=== PATIENT | female | born 1960 | race Caucasian/White ===

== ENCOUNTER 2016-08-21 14:32 | Emergency (ER) | payer MEDICAID ==
[~2016-08-21] VITALS: Ht 157.5 cm; Wt 60.0 kg
[~2016-08-21 14:32] MED LIST: CALC-138 PO; CHOL20003 PO; EZET10TA3 PO; FENO160T PO; FLUT16SP2 NAS; FLUT1DIS3 INH; HYDR12.58 PO; HYDR30CR7 TP; IPRA4AER INH; MONT10TA9 PO; MULT-658 PO; PANT40TA5 PO; ROPI1TAB2 PO
[2016-08-21] MEDS ORDERED: SODIUM CHLORIDE FLUSH 10ML SYR IVF ONE (15:00)
[2016-08-21] MEDS ORDERED: SODIUM CHLORIDE 0.9% 1,000ML IVBOLUS ONE (15:00)
[2016-08-21 15:18] LABS: ASPARTATE AMINO TRANSFERASE 25 U/L (15-37); BLOOD UREA NITROGEN 4 mg/dL (7-18)
[2016-08-21] MEDS ORDERED: METOCLOPRAMIDE 5 MG/ML, 2ML ONE (16:28)
[2016-08-21] MEDS ORDERED: KETOROLAC 30 MG/1 ML ONE (16:28)
[2016-08-21] MEDS ORDERED: DIPHENHYDRAMINE 50 MG/ML, 1ML ONE (16:28)
[2016-08-21] MEDS ORDERED: METOCLOPRAMIDE 5 MG/ML, 2ML IVPush ONE (16:30)
[2016-08-21] MEDS ORDERED: KETOROLAC 30 MG/1 ML IVPush ONE (16:30)
[2016-08-21] MEDS ORDERED: DIPHENHYDRAMINE 50 MG/ML, 1ML IVPush ONE (16:30)
[2016-08-21 17:15] LABS: DAU SCREEN DISCLAIMER
[2016-08-21 18:26] VITALS: BP 159/87
== END 2016-08-21 18:07 | disposition home or self-care (01) ==
LOC: ED 17:11
DX: N30.90 Cystitis, unspecified without hematuria (principal); R51 Headache; J44.9 Chronic obstructive pulmonary disease, unspecified; K75.9 Inflammatory liver disease, unspecified; I10 Essential (primary) hypertension; E78.00 Pure hypercholesterolemia, unspecified; Z90.49 Acquired absence of other specified parts of digestive tract
CPT/HCPCS: 36415; 70450; 72125; 80053; 80307; 81001; 85025; 87086; 93005; 96361; 96374; 96375; 99285; J1200; J1885; J2765; J7030

== ENCOUNTER 2017-01-03 11:56 | Emergency (ER) | payer MEDICAID ==
[~2017-01-03] VITALS: Ht 152.4 cm; Wt 51.8 kg
[~2017-01-03 11:56] MED LIST changes: +CHOL2000 PO; -CHOL20003 PO; +EZET10TA18 PO; -EZET10TA3 PO
[2017-01-03 12:00] VITALS: BP 116/77
[2017-01-03] MEDS ORDERED: IBUPROFEN 200 MG TABLET ONE (12:13)
[2017-01-03] MEDS ORDERED: IBUPROFEN 200 MG TABLET PO ONE (12:30)
== END 2017-01-03 13:24 | disposition home or self-care (01) ==
LOC: ED 12:10
DX: S90.32XA Contusion of left foot, initial encounter (principal); J44.9 Chronic obstructive pulmonary disease, unspecified; I10 Essential (primary) hypertension; E78.00 Pure hypercholesterolemia, unspecified; Z90.49 Acquired absence of other specified parts of digestive tract; W04.XXXA Fall while being carried or supported by other persons, initial encounter; Y93.89 Activity, other specified; Y92.009 Unspecified place in unspecified non-institutional (private) residence as the place of occurrence of the external cause; Y99.8 Other external cause status
CPT/HCPCS: 99284

== ENCOUNTER 2017-12-04 19:31 | Emergency (ER) | payer MEDICAID ==
[~2017-12-04] VITALS: Ht 152.4 cm; Wt 47.6 kg
[2017-12-04 19:35] VITALS: BP 152/87
[2017-12-04] MEDS ORDERED: PROPARACAINE OPHTH 0.5%, 15ML ONE (19:47)
[2017-12-04] MEDS ORDERED: PROPARACAINE OPHTH 0.5%, 15ML EACHEYE ONE (20:00)
[2017-12-04] MEDS ORDERED: ERYTHROMYCIN OPHTH 0.5%, 1GM LEFTEYE ONE (20:00)
[2017-12-04] MEDS ORDERED: FLUORESCEIN OPHTHALMIC 1 MG STRIP EACHEYE ONE (20:00)
== END 2017-12-04 20:59 | disposition home or self-care (01) ==
LOC: ED 20:15
DX: S05.02XA Injury of conjunctiva and corneal abrasion without foreign body, left eye, initial encounter (principal); J44.9 Chronic obstructive pulmonary disease, unspecified; I10 Essential (primary) hypertension; E78.00 Pure hypercholesterolemia, unspecified; Z88.0 Allergy status to penicillin; Z98.51 Tubal ligation status; X58.XXXA Exposure to other specified factors, initial encounter; Y93.01 Activity, walking, marching and hiking; Y92.89 Other specified places as the place of occurrence of the external cause; Y99.8 Other external cause status
CPT/HCPCS: 99283

== ENCOUNTER 2019-06-17 11:01 | Emergency (ER) | payer MEDICAID ==
[~2019-06-17] VITALS: Ht 152.4 cm; Wt 49.9 kg
[~2019-06-17 11:01] MED LIST changes: -EZET10TA18 PO; +EZET10TA70 PO; -HYDR12.58 PO; +HYDROCHLOROTH12.5 MG PO; +MONT10TA11 PO; -MONT10TA9 PO; -ROPI1TAB2 PO; +ROPI1TAB4 PO
--- NOTE | 2019-06-17 11:32 | NUR ---
[facility]F THIS MORNING C/O LEFT POSTERIOR MID THORACIC RIB PAIN. DENIES LOC OR HITTING HER HEAD. PAIN INCREASES WITH MOVEMENT AND INSPIRATION. ER PA AT BEDSIDE. PT ASSESSMENT, POC DISCUSSED, ORDERS REC'D. PT ON BP AND SP02 MONITORING, CALL LIGHT W/I REACH, WARM BLANKET PROVIDED.
[2019-06-17] MEDS ORDERED: OXYcodone/APAP 5/325MG TABLET ONE ×2 (11:37→12:33)
--- NOTE | 2019-06-17 11:40 | NUR ---
PT MED NOTED FOR PAIN. WARM BLANKET TO LEFT RIB AREA AND PT INSTRUCTED ON SPLINTING WITH [place] IF SHE NEEDS TO COUGH.
--- NOTE | 2019-06-17 11:51 | NUR ---
REPORT RECEIVED FROM CHELO MIGUEL.
[2019-06-17] MEDS ORDERED: OXYcodone/APAP 5/325MG TABLET PO ONE ×2 (12:00→13:00)
--- NOTE | 2019-06-17 12:00 | NUR ---
[facility] RPT TO [facility]. PT CURRENTLY IN RADIOLOGY
--- NOTE | 2019-06-17 12:05 | NUR ---
ALL TESTS RESULTED PT IS UP FOR RECHECK AT THIS TIME.
[2019-06-17 12:09] VITALS: BP 147/87
--- NOTE | 2019-06-17 12:10 | NUR ---
PT REPORTS PAIN NOW 09/07. WAS 10/10 PRIOR TO MEDICATING. RESTING ON [place] W/ CALL LIGHT IN REACH. AWAITING RECHECK.
--- NOTE | 2019-06-17 12:52 | NUR ---
Patient given discharge instructions and they have confirmed that they understand the instructions. Patient ambulatory with steady gait.
== END 2019-06-17 12:54 | disposition home or self-care (01) ==
LOC: ED 12:07
DX: S20.212A Contusion of left front wall of thorax, initial encounter (principal); F17.210 Nicotine dependence, cigarettes, uncomplicated; F41.9 Anxiety disorder, unspecified; J44.9 Chronic obstructive pulmonary disease, unspecified; I10 Essential (primary) hypertension; E78.00 Pure hypercholesterolemia, unspecified; Z90.49 Acquired absence of other specified parts of digestive tract; W01.0XXA Fall on same level from slipping, tripping and stumbling without subsequent striking against object, initial encounter; Y93.89 Activity, other specified; Y92.009 Unspecified place in unspecified non-institutional (private) residence as the place of occurrence of the external cause; Y99.8 Other external cause status
CPT/HCPCS: 99283

== ENCOUNTER 2019-06-27 05:41 | Observation (INO) | payer MEDICAID ==
[~2019-06-27] VITALS: Ht 152.4 cm; Wt 50.0 kg
--- NOTE | 2019-06-27 05:58 | NUR ---
PATIENT AMBULATORY WITH STEADY GAIT TO RESTROOM FROM ROOM
--- NOTE | 2019-06-27 06:57 | NUR ---
THIS IS A 59 YO FEMALE COMING IN FOR "RECHECK", PATIENT STATES "I WAS SEEN HERE ON THE FOR LEFT RIB PAIN, THEY SAID IT WAS BRUISED. NOW IT'S GETTING WORSE AND THE PAIN IS TRAVELING DOWN MORE". LEFT RIBS TENDER TO PALPATION, TNEDER TO PALPATION IN STERNUM, SHORTNESS OF BREATH RELATED TO PAIN IN RIBS. VSS IN TRIAGE, PIV PLACED FOR CT. FAMILY IN ROOM. CALL LIGHT IN REACH.
[2019-06-27] MEDS ORDERED: SODIUM CHLORIDE FLUSH 10ML SYR IVF ONE (07:00)
--- NOTE | 2019-06-27 07:00 | NUR ---
REPORT GIVEN TO [facility]. PLAN OF CARE DISCUSSED. LABS SENT, AWAITING TO BE TAKEN TO CT
[2019-06-27 07:05] LABS: BASOPHILS # (AUTO) 0.03 x10^3/uL (0-0.1); BASOPHILS % (AUTO) 0 % (0-1); EOSINOPHILS % (AUTO) 2 % (1-7); LYMPHOCYTES # (AUTO) 1.91 x10^3/uL (1-3.4); LYMPHOCYTES % (AUTO) 20 % (22-44); MD NO; MEAN CORPUSCULAR HEMOGLOBIN 31.2 pg (27.0-34.8); MEAN CORPUSCULAR HGB CONC 33.4 g/dL (32.4-35.8); MEAN CORPUSCULAR VOLUME 93.4 fL (80-100); MONOCYTES # (AUTO) 0.49 x10^3/uL (0.2-0.8); MONOCYTES % (AUTO) 5 % (2-9); NEUTROPHILS # (AUTO) 6.95 x10^3/uL (1.8-6.8); NEUTROPHILS % (AUTO) 73 % (42-75); PLATELET COUNT 263 x10^3/uL (130-400); RED BLOOD COUNT 5.03 x10^6/uL (3.82-5.3); RED CELL DISTRIBUTION WIDTH 13.9 % (9.6-15.2)
[2019-06-27 07:16] LABS: ALBUMIN 3.6 g/dL (3.4-5.0); ANION GAP 4 mmol/L (5-15); CALCIUM 9.1 mg/dL (8.5-10.1); CHLORIDE 113 mmol/L (98-107); CREATININE 0.76 mg/dL (0.55-1.02)
--- NOTE | 2019-06-27 07:26 | NUR ---
PT RESTING IN BED, CALL LIGHT IN REACH
[2019-06-27] MEDS ORDERED: OMNIPAQUE 350 MG/ML, 100ML BOTTLE ONE (08:30)
--- NOTE | 2019-06-27 09:12 | NUR ---
MD TATE AT BEDSIDE FOR EVALUATION
--- NOTE | 2019-06-27 09:12 | NUR ---
dr rios spoke with dr iqbal
[2019-06-27 09:15] VITALS: BP 161/93
--- NOTE | 2019-06-27 09:41 | NUR ---
STEADY AMBULATION TO BATHROOM
--- NOTE | 2019-06-27 09:59 | NUR ---
report called to geovanni pritchett
[2019-06-27] MEDS ORDERED: TRAZODONE 50MG TABLET PO PRN (11:30)
[2019-06-27] MEDS ORDERED: ONDANSETRON 2MG/ML, 2ML IVPush PRN (11:30)
[2019-06-27] MEDS ORDERED: ENOXAPARIN 30 MG/0.3 ML SQ SCH (11:30)
[2019-06-27] MEDS ORDERED: METHOCARBAMOL 500 MG TABLET PO SCH (11:30)
[2019-06-27] MEDS ORDERED: IBUPROFEN 600 MG TABLET PO PRN (11:30)
[2019-06-27] MEDS ORDERED: ONDANSETRON ODT 4 MG PO PRN (11:30)
[2019-06-27] MEDS ORDERED: hydrALAzine 20 MG/ML, 1ML IVPush PRN (11:30)
[2019-06-27] MEDS ORDERED: KETOROLAC 30 MG/1 ML IV PRN (11:30)
[2019-06-27] MEDS ORDERED: LABETALOL 5MG/ML, 20ML IVPush PRN (11:30)
[2019-06-27] MEDS ORDERED: BUTALB/APAP/CAFFEINE 50MG/325MG/40MG PO PRN (11:30)
[2019-06-27] MEDS ORDERED: ACETAMINOPHEN 325 MG TABLET PO PRN (11:30)
[2019-06-27] MEDS ORDERED: NICOTINE 21 MG/24 HR PATCH.TD24 TD ONE (12:00)
[2019-06-27] MEDS ORDERED: ALBUTEROL/IPRATROPIUM 2.5MG/0.5MG, 3 ML NEB SCH (16:00)
[2019-06-27] MEDS ORDERED: BUDESONIDE 0.5 MG/2 ML INHA NEB SCH (21:00)
[2019-06-27] MEDS ORDERED: LACTULOSE 10 GM/15 ML UDC PO SCH (21:00)
[2019-06-27] MEDS ORDERED: ROPINIROLE 1MG TABLET PO SCH (21:00)
[2019-06-28] MEDS ORDERED: PANTOPRAZOLE 40MG TABLET PO SCH (07:30)
[2019-06-28] MEDS ORDERED: MULTIVITAMIN 1 TABLET PO SCH (09:00)
[2019-06-28] MEDS ORDERED: CHOLECALCIFEROL 1,000 UNIT TABLET PO SCH (09:00)
[2019-06-28] MEDS ORDERED: HYDROCHLOROTHIAZIDE 12.5 MG CAPSULE PO SCH (09:00)
[2019-06-28] MEDS ORDERED: FENOFIBRATE 145 MG TABLET PO SCH (09:00)
[2019-06-28] MEDS ORDERED: EZETIMIBE 10 MG TABLET PO SCH (09:00)
[2019-06-28] MEDS ORDERED: MONTELUKAST 10 MG TABLET PO SCH (09:00)
[2019-06-28] MEDS ORDERED: HYDROCORTISONE TP SCH (09:00)
[2019-06-28] MEDS ORDERED: CALCIUM/VITAMIN D3 250-125 TABLET PO SCH (09:00)
== END 2019-06-27 15:39 | disposition left against medical advice (07) ==
LOC: ED 06:58 → EDIP 09:10 → INTOOBSV 09:10 → 3N 10:29
PROVIDERS: ADMIT Family Medicine; ATTEND Family Medicine
DX: S22.32XA Fracture of one rib, left side, initial encounter for closed fracture (principal); G89.11 Acute pain due to trauma; R07.81 Pleurodynia; J44.9 Chronic obstructive pulmonary disease, unspecified; I10 Essential (primary) hypertension; E78.5 Hyperlipidemia, unspecified; E78.00 Pure hypercholesterolemia, unspecified; F17.210 Nicotine dependence, cigarettes, uncomplicated; Z99.81 Dependence on supplemental oxygen; G25.81 Restless legs syndrome; W01.0XXA Fall on same level from slipping, tripping and stumbling without subsequent striking against object, initial encounter; Y93.89 Activity, other specified; Y92.89 Other specified places as the place of occurrence of the external cause
CPT/HCPCS: 36415; 71260; 74177; 80048; 82040; 85025; 96372; 96374; 99284; G0378; J1650; J1885; Q9967